=== PATIENT | male | born 1965 | race Two or more races ===

== ENCOUNTER 2018-03-05 11:54 | Emergency (ER) | payer OTHER ==
[~2018-03-05] VITALS: Ht 167.6 cm; Wt 74.8 kg
[~2018-03-05 11:54] MED LIST: ASA81 MG PO
== END 2018-03-05 15:51 | disposition home or self-care (01) ==
LOC: ER 11:54
DX: M54.2 Cervicalgia (principal); F06.4 Anxiety disorder due to known physiological condition

== ENCOUNTER 2020-08-10 15:08 | Outpatient (CLI) | payer OTHER | END 2020-08-10 15:23 | disposition HB | LOC: RAD 15:08 | PROVIDERS: ATTEND Orthopaedic Surgery | DX: M25.571 Pain in right ankle and joints of right foot (principal) ==

== ENCOUNTER 2020-08-14 06:10 | Day surgery (SDC) | payer OTHER | END 2020-08-14 15:50 | disposition home or self-care (01) | LOC: CIR.AMB 06:10 | PROVIDERS: ATTEND Orthopaedic Surgery | DX: S82.61XA Displaced fracture of lateral malleolus of right fibula, initial encounter for closed fracture (principal); S93.431A Sprain of tibiofibular ligament of right ankle, initial encounter; Z20.828 Contact with and (suspected) exposure to other viral communicable diseases | CPT/HCPCS: 27792; 20902; 27829; C1776 ==

== ENCOUNTER 2020-09-01 12:54 | Outpatient (CLI) | payer OTHER | END 2020-09-01 13:02 | disposition home or self-care (01) | LOC: RAD 12:54 | PROVIDERS: ATTEND Orthopaedic Surgery | DX: S93.491D Sprain of other ligament of right ankle, subsequent encounter (principal) ==

== ENCOUNTER 2020-10-25 11:14 | Outpatient (CLI) | payer OTHER | END 2020-10-25 11:36 | disposition home or self-care (01) | LOC: RAD 11:14 | PROVIDERS: ATTEND Orthopaedic Surgery | DX: S93.491D Sprain of other ligament of right ankle, subsequent encounter (principal) ==

== ENCOUNTER 2021-01-15 10:58 | Outpatient (CLI) | payer OTHER | END 2021-01-15 11:08 | disposition home or self-care (01) | LOC: RAD 10:58 | PROVIDERS: ATTEND Orthopaedic Surgery | DX: M25.571 Pain in right ankle and joints of right foot (principal) ==

== ENCOUNTER → 2021-05-03 16:12 | Outpatient (CLI) | payer OTHER | END | disposition home or self-care (01) | LOC: RAD 16:12 | PROVIDERS: ATTEND Orthopaedic Surgery | DX: M25.474 Effusion, right foot (principal); M79.671 Pain in right foot; S90.31XA Contusion of right foot, initial encounter ==

== ENCOUNTER 2021-08-09 13:10 | Outpatient (CLI) | payer OTHER | END 2021-08-09 13:32 | disposition home or self-care (01) | LOC: TOM 13:10 | PROVIDERS: ATTEND Internal Medicine Pulmonary Disease | DX: K76.0 Fatty (change of) liver, not elsewhere classified (principal); R06.02 Shortness of breath; J43.2 Centrilobular emphysema; Z72.0 Tobacco use ==